=== PATIENT | male | born 1955 | race Caucasian/White ===

== ENCOUNTER 2020-01-10 15:10 | Inpatient (IN) | payer OTHER ==
[~2020-01-10] VITALS: Ht 182.9 cm; Wt 109.3 kg
--- NOTE | 2020-01-10 15:35 | NUR ---
[facility] FROM [facility] TO ER BED 6. AAOX4. SOB. CAME IN FOR CP PAIN X 4 HOURS AGO. PAIN IS ON MID TO LEFT CHEST NON RADIATING. BURNING AND SHARP. 4/10 GETS RELIEF BY BURPING. PT PLACED ON O2 VIA NC @ 2LPM NOTED O2 SAT @ 91% ON RA. PT DOES NOT WANT TO LIE DOWN BECAUSE SITTING HELPS HIM BREATH BETTER. 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 AWAITING MD FOR EVAL.
[2020-01-10] MEDS ORDERED: BUME1TAB8 PO (15:40)
[2020-01-10] MEDS ORDERED: BLOO-668 IN (15:40)
[2020-01-10] MEDS ORDERED: ASPI-1169 PO (15:40)
[2020-01-10] MEDS ORDERED: MAGN400O6 PO (15:40)
[2020-01-10] MEDS ORDERED: DOCU-141 PO (15:40)
[2020-01-10] MEDS ORDERED: IPRA0.2S9 IH (15:40)
[2020-01-10] MEDS ORDERED: DEXT33GE7 PO (15:40)
[2020-01-10] MEDS ORDERED: NA P133E RC (15:40)
[2020-01-10] MEDS ORDERED: ATOR10TA PO (15:40)
[2020-01-10] MEDS ORDERED: INSU100V3 SQ (15:40)
[2020-01-10] MEDS ORDERED: SENN-261 PO (15:40)
[2020-01-10] MEDS ORDERED: GLUC1KIT SQ (15:40)
[2020-01-10] MEDS ORDERED: ACID1TAB12 PO (15:40)
[2020-01-10] MEDS ORDERED: CHOL100040 PO (15:40)
[2020-01-10] MEDS ORDERED: BISA10SU11 RC (15:40)
[2020-01-10] MEDS ORDERED: ALBU2.5V38 IH (15:40)
[2020-01-10] MEDS ORDERED: METO50TA7 PO (15:40)
--- NOTE | 2020-01-10 16:31 | NUR ---
XRAY AND WASHERY BOSS AT BEDSIDE
--- NOTE | 2020-01-10 17:13 | NUR ---
followed up with lab for blood draw
[2020-01-10 17:53] LABS: BASOPHILS # (AUTO) 0.1 /CMM (0.0-0.2); BASOPHILS % (AUTO) 1.1 % (0.0-2.0); EOSINOPHILS % (AUTO) 0.1 % (0.0-6.0); HEMATOCRIT 45 % (39-51); HEMOGLOBIN 14.1 g/dL (13.5-17.5); LYMPHOCYTES # (AUTO) 0.5 /CMM (0.8-4.8); LYMPHOCYTES % (AUTO) 4.2 % (20.0-44.0); MEAN CORPUSCULAR HGB CONC 32 g/dl (31.0-36.0); MEAN CORPUSCULAR VOLUME 92 fL (80-96); MONOCYTES % (AUTO) 8.3 % (2.0-12.0); NEUTROPHILS # (AUTO) 10.3 /CMM (1.8-8.9); NEUTROPHILS % (AUTO) 86.3 % (43.0-81.0); PLATELET COUNT (AUTO) 281 /CMM (150-450); RED BLOOD CELL COUNT(AUTO) 4.89 MIL/uL (4.5-6.0); WHITE BLOOD COUNT (AUTO) 11.9 K/uL (4.3-11.0)
[2020-01-10 18:05] LABS: CALCIUM, SERUM 9.3 mg/dL (8.5-10.1); CREATININE 1.5 mg/dL (0.6-1.3)
[2020-01-10] MEDS ORDERED: ENOXAPARIN SODIUM 80 MG/0.8 ML DISP.SYRIN SQ ONE ×2 (19:30→19:32)
[2020-01-10] MEDS ORDERED: FUROSEMIDE 40 MG/4 ML VIAL ONE (19:45)
[2020-01-10] MEDS ORDERED: FUROSEMIDE 40 MG/4 ML VIAL IV ONE ×2 (20:00→23:30)
--- NOTE | 2020-01-10 20:20 | NUR ---
ROOM ASSIGNMENT: [id number] TELE
--- NOTE | 2020-01-10 20:34 | NUR ---
REPORT GIVEN TO KAREEM FANG FOR JAYNE.
--- NOTE | 2020-01-10 20:43 | NUR ---
BRIDGE DESIGN ENGINEER NOTES PATIENT ARRIVED ON UNIT AT 2042. PATIENT ALERT AND ORIENTED X 4. BREATHING EVEN AND UNLABORED ON 2L NC. SHOWS NO SIGNS OF ACUTE RESPIRATORY DISTRESS, NO ACUTE PAIN. TELE MONITOR SR WITH BBB AT 95HR. IV ON L HAND 20G ITS CLEAN DRY AND INTACT. SHOWS NO SIGNS OF INFILTRATION, NO REDNESS. SAFETY PRECAUTIONS IN PLACE. BED IN LOWEST POSITION, LOCKED, AND CALL LIGHT KEPT WITHIN REACH. WILL CONTINUE TO MONITOR.
[2020-01-10 20:45] VITALS: BP 102/63
--- NOTE | 2020-01-10 20:48 | NUR ---
PT TRANSPORTED TO UNIT ON GURNEY WITH EMT AND RN AT BEDSIDE W/ ACLS PROTOCOL. NAD NOTED DURING TRANSPORT.
[2020-01-10] MEDS ORDERED: *INSULIN REGULAR(HUMULIN R)HUM 100 UNIT/ML VIAL SQ PRN (21:00)
[2020-01-10] MEDS ORDERED: ALBUTEROL FS 2.5 MG/3 ML VIAL.NEB IH PRN (21:00)
[2020-01-10] MEDS ORDERED: Z GUARD REMEDY 2 OZ OINT TP PRN (21:00)
[2020-01-10] MEDS ORDERED: MORPHINE SULFATE INJ 2 MG/ML DISP.SYRIN IV PRN (21:00)
[2020-01-10] MEDS ORDERED: IPRATROPIUM NEB FS 0.5 MG/2.5 ML AMPUL.NEB IH PRN (21:00)
[2020-01-10] MEDS ORDERED: MAG HYDROX/AL HYDROX/SIMETH 30 ML UDC PO PRN (21:00)
[2020-01-10] MEDS ORDERED: BISACODYL SUPP (10 MG) 10 MG/SUPP.RECT SUPP.RECT RC PRN (21:00)
[2020-01-10] MEDS ORDERED: ONDANSETRON HCL/PF 4 MG/2 ML VIAL IVP PRN (21:00)
[2020-01-10] MEDS ORDERED: HYDROCODONE/APAP 5/325MG 1 EACH TABLET PO PRN (21:00)
[2020-01-10] MEDS ORDERED: DEXTROSE 50%-WATER 50 ML DISP.SYRIN IV PRN (21:00)
[2020-01-10] MEDS ORDERED: MAGNESIUM HYDROXIDE 30 ML UDC PO PRN ×2 (21:00)
[2020-01-10] MEDS ORDERED: ACETAMINOPHEN 325 MG TABLET PO PRN (21:00)
[2020-01-10] MEDS ORDERED: ENOXAPARIN SODIUM 40 MG/0.4 ML DISP.SYRIN SQ SCH (21:00)
[2020-01-10] MEDS ORDERED: NA PHOS,M-B/NA PHOS,DI-BA 1 EA ENEMA RC PRN (21:00)
[2020-01-10] MEDS: SENNOSIDES 8.6 MG TABLET PO SCH (22:14)
[2020-01-10] MEDS: ATORVASTATIN 10 MG TABLET PO SCH (22:14)
[2020-01-10] MEDS: BLOOD SUGAR DIAGNOSTIC 1 EACH STRIP VI SCH (22:23)
[2020-01-10 22:45] VITALS: BP 102/63
--- NOTE | 2020-01-10 22:45 | NUR ---
[facility] PHYSICIAN NOTES PATIENT ARRIVED ON UNIT AT 2243. PATIENT ALERT AND ORIENTED X 4. BREATHING EVEN AND UNLABORED ON 2L NC. SHOWS NO SIGNS OF ACUTE RESPIRATORY DISTRESS, NO ACUTE PAIN. TELE MONITOR SR WITH BBB AT 95HR. IV ON L HAND 20G ITS CLEAN DRY AND INTACT. SHOWS NO SIGNS OF INFILTRATION, NO REDNESS. SAFETY PRECAUTIONS IN PLACE. BED IN LOWEST POSITION, LOCKED, AND CALL LIGHT KEPT WITHIN REACH. WILL CONTINUE TO MONITOR. Addendum: 01/11/20 at 0342 by LEONCIO RODRIGUEZ RN WRONG TIME
[2020-01-11] VITALS: BP 115/70
[2020-01-11] MEDS: LORAZEPAM 1 MG TABLET PO PRN (06:21)
[2020-01-11] MEDS: BLOOD SUGAR DIAGNOSTIC 1 EACH STRIP VI SCH ×4 (06:44→21:38)
--- NOTE | 2020-01-11 06:48 | NUR ---
MILL WORK NOTES PATIENT IN BED, ASLEEP, ALERT AND ORIENTED X 4. BREATHING EVEN AND UNLABORED ON 2L NC. SHOWS NO SIGNS OF ACUTE RESPIRATORY DISTRESS, NO ACUTE PAIN. TELE MONITOR SR W/ PVC AT 95HR. IV ON R HAND 20G ITS CLEAN DRY AND INTACT. SHOWS NO SIGNS OF INFILTRATION, NO REDNESS. ALL DUE MEDICATIONS GIVEN. SAFETY PRECAUTIONS IN PLACE. BED IN LOWEST POSITION, LOCKED, AND CALL LIGHT KEPT WITHIN REACH. WILL ENDORSE TO ONCOMING NURSE.
--- NOTE | 2020-01-11 07:48 | NUR ---
TELE/RN OPENING NOTES RECEIVED PATIENT IN BED, ASLEEP, ALERT AND ORIENTED X 3. BREATHING EVEN AND UNLABORED ON 2L NC. NO SIGNS OF ACUTE RESPIRATORY DISTRESS, NO ACUTE PAIN. TELE MONITOR SR 87 BPM. IV ON R HAND 20G, CLEAN DRY, INTACT AND PATENT. NO SIGNS OF INFILTRATION, NO REDNESS. SAFETY PRECAUTIONS IN PLACE. BED IN LOWEST POSITION, LOCKED, AND CALL LIGHT KEPT WITHIN REACH. WILL CONTINUE TO MONITOR.
[2020-01-11 08:00] VITALS: BP 106/56
[2020-01-11] MEDS ORDERED: FUROSEMIDE 40 MG/4 ML VIAL IV SCH (09:00)
[2020-01-11] MEDS: METOPROLOL SUCCINATE 50 MG TAB.SR.24H PO SCH (09:00)
[2020-01-11] MEDS: ASPIRIN 81 MG TAB.CHEW PO SCH (09:06)
[2020-01-11] MEDS: CHOLECALCIFEROL 1,000 UNIT TABLET (VIT D3) PO SCH (09:06)
[2020-01-11] MEDS: ACIDOPHILUS/BULGARICUS 1 EACH TAB.CHEW PO SCH ×2 (09:07→17:12)
[2020-01-11] MEDS: DOCUSATE SODIUM 100 MG CAPSULE PO SCH ×2 (09:07→17:11)
[2020-01-11] MEDS: FUROSEMIDE 100 MG/10 ML VIAL IV SCH ×3 (10:37→17:12)
--- NOTE | 2020-01-11 10:45 | NUR ---
TELE/RN NOTES PATIENT BP 106/56 HR 86 METOPROLOL SUCCINATE 50 MG IV IS NOT ADMINISTERED AND LASIX 40MG IV GIVEN AT 0900 MD IS AWARE AND DR. GARCIA VERBALIZED THAT ITS OK TO GIVE THE NEXT 3 DOSE OF LASIX 80 MG PRESCRIBED TIME ORDER.
[2020-01-11 10:59] LABS: BASOPHILS # (AUTO) 0.1 /CMM (0.0-0.2); BASOPHILS % (AUTO) 0.8 % (0.0-2.0); EOSINOPHILS % (AUTO) 0.1 % (0.0-6.0); HEMATOCRIT 45 % (39-51); HEMOGLOBIN 14.4 g/dL (13.5-17.5); LYMPHOCYTES # (AUTO) 0.9 /CMM (0.8-4.8); LYMPHOCYTES % (AUTO) 7.4 % (20.0-44.0); MEAN CORPUSCULAR HGB CONC 32 g/dl (31.0-36.0); MEAN CORPUSCULAR VOLUME 92 fL (80-96); MONOCYTES # (AUTO) 1.1 /CMM (0.1-1.30); MONOCYTES % (AUTO) 9.5 % (2.0-12.0); NEUTROPHILS # (AUTO) 9.6 /CMM (1.8-8.9); NEUTROPHILS % (AUTO) 82.2 % (43.0-81.0); PLATELET COUNT (AUTO) 267 /CMM (150-450); RED BLOOD CELL COUNT(AUTO) 4.95 MIL/uL (4.5-6.0); WHITE BLOOD COUNT (AUTO) 11.6 K/uL (4.3-11.0)
--- NOTE | 2020-01-11 11:12 | NUR ---
WOUND CARE CONSULT: REVIEWED CHART, NURSING DOCUMENTATION AND PHOTOS WHICH SHOW RASH/REDNESS TO ABDOMINAL/GROIN AREAS, LOWER LEG REDNESS WITH OPEN AREAS, PRESENT ON ADMISSION. RECOMMENDATIONS MADE FOR SKIN PROTECTION. DISCUSSED WITH NURSING STAFF. RECOMMEND DPM CONSULT. DR MINOR NOTIFIED OF CONSULT REQUEST. WILL SEE PROk GALVEZ IN AGREEMENT WITH PLAN OF CARE.
[2020-01-11 11:23] LABS: ALBUMIN 2.8 g/dL (3.4-5.0); BILIRUBIN,TOTAL 1.6 mg/dL (0.2-1.0); CALCIUM, SERUM 9.1 mg/dL (8.5-10.1); CREATININE 1.4 mg/dL (0.6-1.3); MAGNESIUM 2.5 mg/dL (1.8-2.4); PHOSPHORUS 6.2 mg/dL (2.5-4.9); POTASSIUM 4.8 mmol/L (3.5-5.1); TOTAL PROTEIN, SERUM 6.6 g/dL (6.4-8.2)
[2020-01-11] MEDS: INSULIN REGULAR, HUMAN 100 UNIT/ML 3 ML VIAL SQ PRN (12:37)
[2020-01-11] MEDS: ENOXAPARIN SODIUM 100 MG/ML DISP.SYRIN SQ SCH ×2 (14:01→21:34)
[2020-01-11 16:00] VITALS: BP 110/77
[2020-01-11] MEDS: CLOTRIMAZOLE 1% 15 GM TUBE TP SCH (17:12)
--- NOTE | 2020-01-11 19:30 | NUR ---
TELE/RN CLOSING NOTES PATIENT IS ON BED AWAKE, ALERT AND ORIENTED X 2-3. BREATHING EVEN AND UNLABORED ON 2L NC, SAO2 96%. NO APPARENT RESPIRATORY DISTRESS NOTED. NO COMPLAINED OF PAIN AT THIS TIME. TELE MONITOR SR SINUS RHYTHM 97 BPM. IV ON R HAND 20G, INTACT AND PATENT. SEEN AND EXAMINED BY MD WITH ORDERS MADE AND CARRIED OUT. ALL DUE MEDICATION WAS GIVEN. CHECKED PATIENT EVERY 2 HOURS[address] SAFETY PRECAUTIONS IN PLACE. BED IN LOWEST POSITION, LOCKED, CALL LIGHT WITHIN REACH. WILL ENDORSED TO TINNING EQUIPMENT TENDER FOR JAYNE.
--- NOTE | 2020-01-11 19:31 | NUR ---
TELE/RN PM OPENING NOTE REPORT RECIEVED FROM HONEY SERNA.PATIENT IS ON BED AWAKE, ALERT AND ORIENTED X 2-3. BREATHING EVEN AND UNLABORED ON 2L NCNO APPARENT RESPIRATORY DISTRESS NOTED. TELE MONITOR SR SINUS RHYTHM HR IN THE 90'S. IV ON R HAND 20G, INTACT AND PATENT. SAFETY PRECAUTIONS IN PLACE. BED IN LOWEST POSITION, LOCKED, CALL LIGHT WITHIN REACH. WILL CONTINUE TO MONITOR.
[2020-01-11 20:00] VITALS: BP 105/74
[2020-01-11] MEDS ORDERED: ENOXAPARIN SODIUM 40 MG/0.4 ML DISP.SYRIN SQ SCH (21:00)
[2020-01-11] MEDS: SENNOSIDES 8.6 MG TABLET PO SCH (21:31)
[2020-01-11] MEDS: ATORVASTATIN 10 MG TABLET PO SCH (21:32)
[2020-01-11 23:51] LABS: APPEARANCE,URINE CLEAR (CLEAR); BILIRUBIN,URINE NEGATIVE (NEGATIVE); BLOOD, URINE LARGE Ery/uL (NEGATIVE); COLOR,URINE YELLOW (YELLOW); KETONES,URINE NEGATIVE (NEGATIVE); LEUKOCYTE ESTERASE ,URINE SMALL (NEGATIVE); NITRITE, URINE NEGATIVE (NEGATIVE); PH,URINE 5.5 (5.0-8.0); PROTEIN,URINE 30 mg/dl (NEGATIVE); UGLUCOSE NEGATIVE (NEGATIVE)
[2020-01-12] VITALS: BP 106/68
[2020-01-12 01:17] LABS: RBC,URINE 81-100 /HPF (0-2)
[2020-01-12 01:18] LABS: BACTERIA,URINE Moderate /HPF (None Seen); SQUAMOUS EPITHELIAL CELL,UR Few /HPF (None Seen); YEAST,URINE Many /HPF (None Seen)
[2020-01-12 01:19] LABS: CALCIUM OXALATE CRYSTALS,UR Few /HPF (None Seen); HYALINE CASTS, URINE Few /LPF (None Seen)
[2020-01-12 06:39] VITALS: BP 106/70
--- NOTE | 2020-01-12 07:52 | NUR ---
GRAVEL INSPECTOR OPENING NOTE PATIENT IN BED RESTING COMFORTABLY. PATIENT IN NO ACUTE DISTRESS. NO SOB NOTED. PATIENT BREATHING IS EVEN AND UNLABORED. PATIENT ON CARDIAC MONITORING READING SINUS RHYTHM WITH FIRST DEGREE BLOCK HR 89. SAFETY PRECAUTIONS IN PLACE. PATIENT BED ALARM IS ON. PATIENT BED IS LOCKED AND IN LOWEST POSITION. CALL LIGHT WITHIN REACH. WILL CONTINUE TO MONITOR.
[2020-01-12] MEDS: BLOOD SUGAR DIAGNOSTIC 1 EACH STRIP VI SCH ×4 (07:55→21:43)
--- NOTE | 2020-01-12 07:55 | NUR ---
TRAINING AND DEVELOPMENT ASSISTANT NOTE PATIENT BLOOD SUGAR IS 127. NO INSULIN COVERAGE NEEDED PER PROTOCOL.
[2020-01-12 08:00] VITALS: BP 110/66
[2020-01-12] MEDS: ASPIRIN 81 MG TAB.CHEW PO SCH (08:25)
[2020-01-12] MEDS: ACIDOPHILUS/BULGARICUS 1 EACH TAB.CHEW PO SCH ×2 (08:25→17:11)
[2020-01-12] MEDS: CHOLECALCIFEROL 1,000 UNIT TABLET (VIT D3) PO SCH (08:25)
[2020-01-12] MEDS: ENOXAPARIN SODIUM 100 MG/ML DISP.SYRIN SQ SCH ×2 (08:25→21:27)
[2020-01-12] MEDS: DOCUSATE SODIUM 100 MG CAPSULE PO SCH ×2 (08:25→17:11)
[2020-01-12] MEDS: METOPROLOL SUCCINATE 50 MG TAB.SR.24H PO SCH (08:26)
[2020-01-12] MEDS: CLOTRIMAZOLE 1% 15 GM TUBE TP SCH ×2 (08:28→17:13)
[2020-01-12 08:50] LABS: BASOPHILS # (AUTO) 0.1 /CMM (0.0-0.2); BASOPHILS % (AUTO) 0.7 % (0.0-2.0); EOSINOPHILS % (AUTO) 0.2 % (0.0-6.0); HEMATOCRIT 44 % (39-51); LYMPHOCYTES # (AUTO) 0.8 /CMM (0.8-4.8); LYMPHOCYTES % (AUTO) 8.1 % (20.0-44.0); MEAN CORPUSCULAR HGB CONC 32 g/dl (31.0-36.0); MEAN CORPUSCULAR VOLUME 92 fL (80-96); MONOCYTES # (AUTO) 1.2 /CMM (0.1-1.30); MONOCYTES % (AUTO) 11.2 % (2.0-12.0); NEUTROPHILS # (AUTO) 8.3 /CMM (1.8-8.9); NEUTROPHILS % (AUTO) 79.8 % (43.0-81.0); PLATELET COUNT (AUTO) 266 /CMM (150-450); RED BLOOD CELL COUNT(AUTO) 4.72 MIL/uL (4.5-6.0); WHITE BLOOD COUNT (AUTO) 10.4 K/uL (4.3-11.0)
[2020-01-12 09:44] LABS: ALBUMIN 2.8 g/dL (3.4-5.0); BILIRUBIN,TOTAL 1.4 mg/dL (0.2-1.0); CALCIUM, SERUM 8.9 mg/dL (8.5-10.1); CREATININE 1.5 mg/dL (0.6-1.3); MAGNESIUM 2.5 mg/dL (1.8-2.4); PHOSPHORUS 5.5 mg/dL (2.5-4.9); POTASSIUM 5.1 mmol/L (3.5-5.1); TOTAL PROTEIN, SERUM 6.7 g/dL (6.4-8.2)
[2020-01-12] MEDS: METOLAZONE 2.5 MG TABLET PO SCH (10:59)
[2020-01-12] MEDS ORDERED: BUMETANIDE INJ 16 MG in IV NS 0.9% 16 ML IV ONE (11:00)
[2020-01-12] MEDS: LORAZEPAM 1 MG TABLET PO PRN (11:31)
[2020-01-12] MEDS: INSULIN REGULAR, HUMAN 100 UNIT/ML 3 ML VIAL SQ PRN ×2 (11:48→17:14)
--- NOTE | 2020-01-12 13:29 | NUR ---
MS RN NOTE PATIENT REQUESTING TO HAVE ITEMS FROM [employer] AT PATIENTS BEDSIDE. THIS INCLUDES PATIENT WALLET WITH 2345 DOLLARS IN [place] AND CREDIT CARDS. EDUCATED IMPORTANCE THAT ITEMS WILL REMAIN SAFE AND SECURE IN HOSPITAL [facility]. PATIENT STATES HE WANTS IT AT BEDSIDE AND ACKNOWLEDGED AND SIGNED HE WILL REMAIN RESPONSIBLE FOR HIS ITEMS AT BEDSIDE. RETRIEVED ITEMS FROM [employer] AND ITEMS GIVEN TO PATIENT AND REMAINS AT BEDSIDE. Addendum: 01/12/20 at 1918 by JOSE ELIAS WORKMAN RN MS RN NOTE PATIENT REQUESTING TO HAVE ITEMS FROM [employer] AT PATIENTS BEDSIDE. THIS INCLUDES PATIENT WALLET WITH 2345 DOLLARS IN GOLDEN AND CREDIT CARDS. EDUCATED IMPORTANCE THAT ITEMS WILL REMAIN SAFE AND SECURE IN HOSPITAL [facility]. PATIENT STATES HE WANTS IT AT BEDSIDE AND ACKNOWLEDGED AND SIGNED HE WILL REMAIN RESPONSIBLE FOR HIS ITEMS AT BEDSIDE. RETRIEVED ITEMS FROM [employer] AND ITEMS GIVEN TO PATIENT AND REMAINS AT BEDSIDE. CHARGE NURSE SEAN MADE AWARE.
[2020-01-12 16:00] VITALS: BP 120/66
--- NOTE | 2020-01-12 18:17 | NUR ---
MS RN OPENING NOTE PATIENT IN BED RESTING COMFORTABLY. PATIENT IN NO ACUTE DISTRESS. NO SOB NOTED. PATIENT BREATHING IS EVEN AND UNLABORED. PATIENT KEPT CLEAN, DRY AND COMFORTABLE THROUGHOUT SHIFT. PATIENT WITH WALLET AT THE BEDSIDE. PATIENT DAWSON CATHETER HANGING TO GRAVITY AND DRAINING WELL. SAFETY PRECAUTIONS IN PLACE. PATIENT BED ALARM IS ON. PATIENT BED IS LOCKED AND IN LOWEST POSITION. CALL LIGHT WITHIN REACH. WILL ENDORSE CARE TO PM SHIFT FOR JAYNE. Addendum: 01/12/20 at 1819 by JOSE ELIAS WORKMAN RN MS RN CLOSING NOTE PATIENT IN BED RESTING COMFORTABLY. PATIENT IN NO ACUTE DISTRESS. NO SOB NOTED. PATIENT BREATHING IS EVEN AND UNLABORED. PATIENT KEPT CLEAN, DRY AND COMFORTABLE THROUGHOUT SHIFT. PATIENT WITH WALLET AT THE BEDSIDE. PATIENT DAWSON CATHETER HANGING TO GRAVITY AND DRAINING WELL. SAFETY PRECAUTIONS IN PLACE. PATIENT BED ALARM IS ON. PATIENT BED IS LOCKED AND IN LOWEST POSITION. CALL LIGHT WITHIN REACH. WILL ENDORSE CARE TO PM SHIFT FOR JAYNE.
[2020-01-12 20:00] VITALS: BP 118/77
[2020-01-12] MEDS: SENNOSIDES 8.6 MG TABLET PO SCH (21:28)
[2020-01-12] MEDS: ATORVASTATIN 10 MG TABLET PO SCH (21:30)
[2020-01-13 02:48] LABS: APPEARANCE,URINE SL CLOUDY (CLEAR); BILIRUBIN,URINE NEGATIVE (NEGATIVE); BLOOD, URINE LARGE Ery/uL (NEGATIVE); COLOR,URINE YELLOW (YELLOW); KETONES,URINE NEGATIVE (NEGATIVE); LEUKOCYTE ESTERASE ,URINE TRACE (NEGATIVE); NITRITE, URINE NEGATIVE (NEGATIVE); PH,URINE 5.5 (5.0-8.0); PROTEIN,URINE TRACE mg/dl (NEGATIVE); UGLUCOSE NEGATIVE (NEGATIVE); UROBILINOGEN,URINE 0.2 EU/dL (0.2)
[2020-01-13 03:16] LABS: BACTERIA,URINE Rare /HPF (None Seen); RBC,URINE 51-80 /HPF (0-2); SQUAMOUS EPITHELIAL CELL,UR Few /HPF (None Seen)
[2020-01-13 03:18] LABS: URINE TOTAL PROTEIN 34.5 mg/dL (0-11.9)
[2020-01-13 03:31] LABS: EOSINOPHIL,URINE None Seen
[2020-01-13] MEDS: LORAZEPAM 1 MG TABLET PO PRN ×2 (05:09→23:56)
--- NOTE | 2020-01-13 06:30 | NUR ---
MS RN CLOSING NOTE PATIENT IN BED PATIENT IN NO ACUTE DISTRESS. NO SOB NOTED. PATIENT BREATHING IS EVEN AND UNLABORED ON 2LNC. PATIENT WALLET RETURNED TO [employer] DURING SHIFT. PATIENT DAWSON CATHETER HANGING TO GRAVITY AND DRAINING WELL HAD 28OO OUT. SAFETY PRECAUTIONS IN PLACE. PATIENT BED ALARM IS ON. PATIENT BED IS LOCKED AND IN LOWEST POSITION. CALL LIGHT WITHIN REACH. WILL ENDORSE CARE TO AM SHIFT FOR JAYNE.
[2020-01-13 07:06] LABS: BASOPHILS # (AUTO) 0.1 /CMM (0.0-0.2); EOSINOPHILS % (AUTO) 0.7 % (0.0-6.0); HEMATOCRIT 42 % (39-51); HEMOGLOBIN 13.7 g/dL (13.5-17.5); LYMPHOCYTES # (AUTO) 0.7 /CMM (0.8-4.8); MEAN CORPUSCULAR HGB CONC 33 g/dl (31.0-36.0); MEAN CORPUSCULAR VOLUME 91 fL (80-96); MONOCYTES # (AUTO) 1.1 /CMM (0.1-1.30); MONOCYTES % (AUTO) 11.3 % (2.0-12.0); NEUTROPHILS # (AUTO) 7.6 /CMM (1.8-8.9); PLATELET COUNT (AUTO) 254 /CMM (150-450); RED BLOOD CELL COUNT(AUTO) 4.62 MIL/uL (4.5-6.0); WHITE BLOOD COUNT (AUTO) 9.5 K/uL (4.3-11.0)
[2020-01-13 07:20] LABS: ALBUMIN 2.8 g/dL (3.4-5.0); BILIRUBIN,TOTAL 1.2 mg/dL (0.2-1.0); CREATININE 1.3 mg/dL (0.6-1.3); MAGNESIUM 2.3 mg/dL (1.8-2.4); PHOSPHORUS 4.7 mg/dL (2.5-4.9); POTASSIUM 3.9 mmol/L (3.5-5.1); TOTAL PROTEIN, SERUM 6.6 g/dL (6.4-8.2)
[2020-01-13] MEDS: BLOOD SUGAR DIAGNOSTIC 1 EACH STRIP VI SCH ×4 (07:23→22:42)
--- NOTE | 2020-01-13 07:37 | NUR ---
MS RN OPENING NOTE PATIENT IN BED RESTING COMFORTABLY. PATIENT IN NO ACUTE DISTRESS. NO SOB NOTED. PATIENT BREATHING IS EVEN AND UNLABORED. SAFETY PRECAUTIONS IN PLACE. PATIENT BED ALARM IS ON. PATIENT BED IS LOCKED AND IN LOWEST POSITION. CALL LIGHT WITHIN REACH. WILL CONTINUE TO MONITOR.
[2020-01-13 08:00] VITALS: BP 111/57
[2020-01-13] MEDS: ENOXAPARIN SODIUM 100 MG/ML DISP.SYRIN SQ SCH ×2 (09:05→22:42)
[2020-01-13] MEDS: CHOLECALCIFEROL 1,000 UNIT TABLET (VIT D3) PO SCH (09:06)
[2020-01-13] MEDS: DOCUSATE SODIUM 100 MG CAPSULE PO SCH ×2 (09:07→16:37)
[2020-01-13] MEDS: ACIDOPHILUS/BULGARICUS 1 EACH TAB.CHEW PO SCH ×2 (09:07→16:37)
[2020-01-13] MEDS: METOPROLOL SUCCINATE 50 MG TAB.SR.24H PO SCH (09:08)
[2020-01-13] MEDS: METOLAZONE 2.5 MG TABLET PO SCH (09:08)
[2020-01-13] MEDS: ASPIRIN 81 MG TAB.CHEW PO SCH (09:09)
[2020-01-13] MEDS: CLOTRIMAZOLE 1% 15 GM TUBE TP SCH ×2 (09:09→16:41)
--- NOTE | 2020-01-13 11:49 | NUR ---
MS RN NOTE PATIENT BLOOD SUGAR IS 125. NO INSULIN COVERAGE NEEDED PER PROTOCOL.
[2020-01-13 16:00] VITALS: BP 103/59
--- NOTE | 2020-01-13 16:40 | NUR ---
MS RN NOTE PATIENT BLOOD SUGAR IS 110. NO INSULIN COVERAGE NEEDED PER PROTOCOL.
--- NOTE | 2020-01-13 18:38 | NUR ---
MS RN CLOSING NOTE PATIENT IN BED RESTING COMFORTABLY. PATIENT IN NO ACUTE DISTRESS. NO SOB NOTED. PATIENT BREATHING IS EVEN AND UNLABORED. PATIENT KEPT CLEAN, DRY AND COMFORTABLE THROUGHOUT SHIFT. PATIENT DAWSON CATHETER HANGING TO GRAVITY AND DRAINING WELL. SAFETY PRECAUTIONS IN PLACE. PATIENT BED ALARM IS ON. PATIENT BED IS LOCKED AND IN LOWEST POSITION. CALL LIGHT WITHIN REACH. WILL ENDORSE CARE TO PM SHIFT FOR JAYNE.
[2020-01-13 20:35] VITALS: BP 114/70
[2020-01-13] MEDS: SENNOSIDES 8.6 MG TABLET PO SCH (22:00)
[2020-01-13] MEDS: ATORVASTATIN 10 MG TABLET PO SCH (22:34)
--- NOTE | 2020-01-14 | NUR ---
patient wanted to keep ativan at bedside. after recording as administered. patient informed that is not possible he has to take it now. patient refusing to take ativan at this time after requesting dose. informed when he is ready to take it to call and ask. Addendum: 01/14/20 at 0737 by GENET FLOWERS RN pharmacist called and state that ativan was not wasted in the [facility] properly, originnal 0.5 mg of 1mg tab of ativan wasted with richard caba rn. the other half was wasted with lorrie pacheco floating from [facility]. since pharmacy called and informed of incorrectly wasting Dolores pacheco witnessed 0.5mg ativan in [facility]. jayden charge nurse informed.
[2020-01-14] MEDS: BLOOD SUGAR DIAGNOSTIC 1 EACH STRIP VI SCH ×2 (07:42→11:13)
--- NOTE | 2020-01-14 07:45 | NUR ---
MS/RN OPENING NOTE RECEIVED PATIENT AWAKE AND WATCHING TV. PATIENT IN NO ACUTE DISTRESS. NO SOB NOTED. PATIENT BREATHING IS EVEN AND UNLABORED. IV ACCESS AT RIGHT HAND #20 HL PATENT AND INTACT. PATIENT DAWSON CATHETER HANGING TO GRAVITY AND DRAINING WELL. SAFETY PRECAUTIONS IN PLACE. PATIENT BED ALARM IS ON. PATIENT BED IS LOCKED AND IN LOWEST POSITION. CALL LIGHT WITHIN REACH. WILL CONTINUE TO MONITOR.
[2020-01-14] MEDS: CHOLECALCIFEROL 1,000 UNIT TABLET (VIT D3) PO SCH (08:37)
[2020-01-14] MEDS: ACIDOPHILUS/BULGARICUS 1 EACH TAB.CHEW PO SCH (08:38)
[2020-01-14] MEDS: METOLAZONE 2.5 MG TABLET PO SCH (08:38)
[2020-01-14] MEDS: ASPIRIN 81 MG TAB.CHEW PO SCH (08:38)
[2020-01-14] MEDS: DOCUSATE SODIUM 100 MG CAPSULE PO SCH (08:38)
[2020-01-14] MEDS: ENOXAPARIN SODIUM 100 MG/ML DISP.SYRIN SQ SCH (08:40)
[2020-01-14 08:50] VITALS: BP 126/71
[2020-01-14] MEDS: CLOTRIMAZOLE 1% 15 GM TUBE TP SCH (08:50)
[2020-01-14] MEDS: METOPROLOL SUCCINATE 50 MG TAB.SR.24H PO SCH (08:50)
--- NOTE | 2020-01-14 16:03 | NUR ---
MS/RN NOTES PATIENT IS ALERT AND ORIENTED X3. PATIENT DENIES PAIN AT THIS TIME. RESPIRATION REGULAR AND UNLABORED. THE PATIENT IN NO APPARENT RESPIRATORY DISTRESS NOTED. SEEN AND EXAMINED BY MD WITH ORDERS MADE AND CARRIED OUT. PATIENT DISCHARGED AT 1345. PATIENT WAS GIVEN DISCHARGED INSTRUCTIONS AND PATIENT VERBALIZED UNDERSTANDING. THE PATIENT LEFT THE HOSPITAL IN STABLE CONDITION, MAINFRAME CONSULTANT BY 2 EMT VIA AMBULANCE.
[2020-01-15 14:10] LABS: PTH, INTACT 52 pg/mL (15-65)
[2020-01-15 16:09] LABS: *SPE A/G RATIO 0.9 (0.7-1.7); *SPE ALBUMIN 2.8 g/dL (2.9-4.4); *SPE ALPHA-1-GLOBULIN 0.3 g/dL (0.0-0.4); *SPE ALPHA-2-GLOBULIN 0.6 g/dL (0.4-1.0); *SPE BETA GLOBULIN 0.9 g/dL (0.7-1.3); *SPE M-SPIKE Not Observed g/dL (Not Observed); *SPEGAMMA GLOBULIN 1.1 g/dL (0.4-1.8)
== END 2020-01-14 14:00 | DRG 280 ==
LOC: ER 15:20 → TELE 20:25 → MED 01-12 10:28 → UNDODISIN 01-14 15:30
PROVIDERS: ADMIT Internal Medicine
DX: I50.23 Acute on chronic systolic (congestive) heart failure (principal); N17.0 Acute kidney failure with tubular necrosis; I21.A1 Myocardial infarction type 2; G93.41 Metabolic encephalopathy; J18.9 Pneumonia, unspecified organism; E87.1 Hypo-osmolality and hyponatremia; J44.0 Chronic obstructive pulmonary disease with (acute) lower respiratory infection; L97.829 Non-pressure chronic ulcer of other part of left lower leg with unspecified severity; L97.819 Non-pressure chronic ulcer of other part of right lower leg with unspecified severity; I82.412 Acute embolism and thrombosis of left femoral vein; J98.11 Atelectasis; N18.9 Chronic kidney disease, unspecified; E11.22 Type 2 diabetes mellitus with diabetic chronic kidney disease; I25.2 Old myocardial infarction; Z87.01 Personal history of pneumonia (recurrent); Z79.4 Long term (current) use of insulin; E78.5 Hyperlipidemia, unspecified; Z79.51 Long term (current) use of inhaled steroids; Z79.82 Long term (current) use of aspirin; Z79.899 Other long term (current) drug therapy; I25.10 Atherosclerotic heart disease of native coronary artery without angina pectoris; I87.2 Venous insufficiency (chronic) (peripheral); I35.1 Nonrheumatic aortic (valve) insufficiency; E11.51 Type 2 diabetes mellitus with diabetic peripheral angiopathy without gangrene; E11.21 Type 2 diabetes mellitus with diabetic nephropathy
CPT/HCPCS: 36415; 71045-TC; 76700-TC; 80048-TC; 80053-TC; 80061-TC; 81000-TC; 82550-TC; 82570-TC; 82962-TC; 83735-TC; 83880; 83970; 84100-TC; 84155; 84155-TC; 84165; 84300-TC; 84484-TC; 85025-TC; 86706; 86803; 87081-TC; 87086-TC; 87340; 93307-TC; 93970-TC; A4216; G0378; J1650; J1815; J1940; J3490; J7030; J7060; U0003-CS